=== PATIENT | male | born 1950 | race Caucasian/White ===

== ENCOUNTER 2022-05-03 13:08 | Outpatient (REF) | payer OTHER, SELFPAY | END 2022-05-03 13:09 | disposition home or self-care (01) | LOC: HO.LAB 13:08 | PROVIDERS: PCP Nurse Practitioner Family; Visit Provider Nurse Practitioner Family | DX: Z13.89 Encounter for screening for other disorder (principal) ==

== ENCOUNTER → 2022-06-01 11:30 | Outpatient (BNVA) | payer OTHER, MEDICAID, SELFPAY | PROVIDERS: PCP Nurse Practitioner Family; Visit Provider Surgery Vascular Surgery | DX: I65.29 Occlusion and stenosis of unspecified carotid artery (principal) | CPT/HCPCS: 99202 ==

== ENCOUNTER 2022-06-16 15:29 | Outpatient (REF) | payer OTHER, MEDICAID, SELFPAY ==
--- NOTE | ~2022-06-16 | US_ITS ---
EXAMINATION: US EXTRACRANIAL CAROTID DUPLEX, BILATERAL CLINICAL INFORMATION: Carotid stenosis. COMPARISON: None available. TECHNIQUE: Real-time ultrasound and Doppler techniques (integrating B-mode 2-D vascular images, Doppler spectral analysis and color-flow Doppler imaging) were utilized to interrogate the extracranial carotid arteries, the vertebral arteries and proximal subclavian arteries bilaterally. The degree of stenosis is determined by criteria similar to NASCET. FINDINGS: RIGHT SIDE: 1. There is mild atherosclerotic plaque seen in the bifurcation/proximal ICA region. 2. The common carotid artery PSV proximally is 83 cm/s and distally 65 cm/s. 3. The proximal internal carotid artery velocities are 68 cm/s systolic and 17 cm/s diastolic. 4. The proximal external carotid artery PSV is 94 cm/s. 5. The vertebral artery shows antegrade flow. 6. The subclavian artery waveforms are normal. LEFT SIDE: 1. There is moderate atherosclerotic plaque seen in the bifurcation/proximal ICA region. 2. The common carotid artery PSV proximally is 77 cm/s and distally 72 cm/s. 3. The proximal internal carotid artery velocities are 173 cm/s systolic and 40 cm/s diastolic. 4. The proximal external carotid artery PSV is 103 cm/s. 5. The vertebral artery shows antegrade flow. 6. The subclavian artery waveforms are normal. US/US carotid duplex BI IMPRESSION: 1. RIGHT: Minimal, non-hemodynamically significant stenosis of the proximal right internal carotid artery corresponding to a 0-49% stenosis by velocity criteria. 2. LEFT: Moderate, hemodynamically significant stenosis of the proximal left internal carotid artery corresponding to a 50-79% stenosis by velocity criteria.
== END 2022-06-16 15:30 | disposition home or self-care (01) ==
LOC: HO.US 15:29
PROVIDERS: PCP Nurse Practitioner Family; Visit Provider Surgery Vascular Surgery
DX: I65.22 Occlusion and stenosis of left carotid artery (principal)
CPT/HCPCS: 93880

== ENCOUNTER → 2022-06-29 14:32 | Outpatient (BNVA) | payer OTHER, MEDICAID, SELFPAY | PROVIDERS: PCP Nurse Practitioner Family; Visit Provider Surgery Vascular Surgery | DX: I65.22 Occlusion and stenosis of left carotid artery (principal) | CPT/HCPCS: 99212 ==

== ENCOUNTER → 2022-08-01 10:15 | Outpatient (BNVA) | payer OTHER, MEDICAID, SELFPAY | PROVIDERS: PCP Nurse Practitioner Family; Visit Provider Psychiatry & Neurology Neurology | DX: I69.328 Other speech and language deficits following cerebral infarction (principal); I65.29 Occlusion and stenosis of unspecified carotid artery; Z79.82 Long term (current) use of aspirin | CPT/HCPCS: 99202 ==

== ENCOUNTER 2022-08-03 11:05 | Outpatient (REF) | payer OTHER, MEDICAID, SELFPAY ==
--- NOTE | ~2022-08-03 | US_ITS ---
EXAMINATION: US ABDOMEN LIMITED CLINICAL INFORMATION: Other specified abnormal findings of blood chemistry. COMPARISON: None available. TECHNIQUE: Real-time imaging of the right upper quadrant abdominal viscera. FINDINGS: PANCREAS: Normal. The visualized pancreatic head and body are normal in appearance. The remainder of the pancreas is obscured from visualization by the overlying bowel gas. LIVER: Normal. The liver is normal in size. The liver contour is normal. Parenchymal echogenicity is normal. No focal hepatic lesion. There is no intrahepatic biliary duct dilatation seen. GALLBLADDER: Normal. The gallbladder is physiologically distended without evidence of stones, sludge, polyps, wall thickening or pericholecystic fluid. COMMON BILE DUCT: Normal in caliber measuring 0.3 cm in diameter. RIGHT KIDNEY: Normal. No hydronephrosis. No renal calculi or focal parenchymal lesions. The kidney measures 12.1 cm in maximum dimension. FREE FLUID: None. US/US abdomen limited IMPRESSION: Unremarkable abdominal ultrasound examination, with imaging the pancreatic tail technically limited.
[2022-08-03 11:21] LABS: MANUAL DIFF FLAG NO
[2022-08-03 11:58] LABS: Basophils Percent Auto 0.4 % (0-2); Eosinophils Absolute Auto 0.1 X10*3/uL (0.0-0.4); Eosinophils Percent Auto 1.7 % (0-4); Hemoglobin 14.9 g/dl (14.0-18.0); Imm Gran Abs Auto 0.01 X10*3/uL (0.00-0.03); Imm Gran Pct Auto 0.2 % (0.0-0.4); Lymphocytes Absolute Auto 1.4 X10*3/uL (1.2-4.9); Lymphocytes Percent Auto 26.4 % (20-40); Mean Corpuscular HGB Conc 34.7 g/dl (31.0-36.0); Mean Corpuscular Volume 89.4 fL (80.0-98.0); Mean Platelet Volume 9.1 fL (9.4-12.4); Monocytes Absolute Auto 0.4 X10*3/uL (0.1-1.2); Monocytes Percent Auto 7.9 % (2-11); Neutrophils Absolute Auto 3.4 x10*3/uL (2.0-8.3); Neutrophils Percent Auto 63.4 % (45-73); Platelet Count 157 X10*3/uL (160-400); Red Blood Count 4.81 X10*6/uL (4.60-5.80); Red Cell Distribution Width 13.2 % (11.0-16.0); White Blood Count 5.3 X10*3/uL (4.8-10.8)
[2022-08-03 12:50] LABS: Alanine Aminotransferase 33 U/L (0-40); Albumin Level 4.8 g/dL (3.5-5.0); Alkaline Phosphatase 116 U/L (39-117); Anion Gap 11 (12-20); Aspartate Amino Transferase 35 U/L (5-37); Bilirubin Direct 0.4 mg/dL (0.0-0.5); Bilirubin Total 1.7 mg/dL (0.0-1.0); Blood Urea Nitrogen 13 mg/dL (9-16); Calcium 9.5 mg/dL (8.4-10.2); Carbon Dioxide 27 mmol/L (22-29); Chloride 105 mmol/L (96-108); Cholesterol 199 mg/dL; Estimated Glomerular Filt Rate > 60; Glucose Random 121 mg/dL (60-115); HDL Cholesterol 34 mg/dL; LDL Cholesterol Calculated 153 mg/dl; Potassium 4.7 mmol/L (3.3-5.1); Sodium 138 mmol/L (135-145); TSH reflex Free T4 0.49 uIU/mL (0.32-4.0); Total Protein 7.5 g/dL (6.5-8.0); Triglycerides 63 mg/dL
[2022-08-03 13:06] LABS: Estimated Average Glucose 91 mg/dL; Hemoglobin A1c % 4.8 %
[2022-08-04 05:40] LABS: HBc Num1 0.07 S/CO (0.00-0.79); HBsAGNum1 0.71 S/CO (0.00-0.99); Hepatitis A Antibody IgM 0.24 Index (0-0.79); Hepatitis B Core Antibody Nonreactive (Nonreactive); Hepatitis B Surface Antigen Negative (Negative); ~HepC Num1 0.08 S/CO (0.00-0.79); ~Hepatitis A Antibody IgM Nonreactive (Nonreactive); ~Hepatitis B Surface Antibody NONREACTIVE (Nonreactive); ~Hepatitis C Antibody Nonreactive (Nonreactive)
== END 2022-08-03 11:06 | disposition home or self-care (01) ==
LOC: HO.US 11:05
PROVIDERS: PCP Nurse Practitioner Family; Visit Provider Nurse Practitioner Family
DX: R79.89 Other specified abnormal findings of blood chemistry (principal); Z13.29 Encounter for screening for other suspected endocrine disorder; Z13.220 Encounter for screening for lipoid disorders; Z13.1 Encounter for screening for diabetes mellitus; Z13.0 Encounter for screening for diseases of the blood and blood-forming organs and certain disorders involving the immune mechanism
CPT/HCPCS: 36415; 76705; 80053; 80061; 82248; 83036; 84443; 85025; 86704; 86706; 86709; 86803; 87340

== ENCOUNTER 2022-10-06 13:23 | Outpatient (AMB) | payer OTHER, MEDICAID, SELFPAY ==
--- NOTE | 2022-10-06 13:26 | A.OFFPC_ITS ---
Vital Signs 10/06/22 13:30 Height 6 ft 3 in Weight 210 lb BMI 26.2 BP 130/72 Blood Pressure Location Lt brachial Position Sitting Pulse 64 Pulse Source Pulse Oximeter Pulse Oximetry (%) 98 Oxygen Delivery Method Room Air Intake Visit Reasons: Follow up Allergies No Known Allergies [No Known Allergies*] Allergy (Verified 10/06/22 13:30) Tobacco use date assessed: 05/25/22 Fall risk assessment: No Falls in past year Last assessed Fall Risk: 10/06/22 Dental Screening Dental Screen Date: 10/06/22 Did you have a dental visit in the last 12 months?: No Did you have a dental problem in the last 6 months where you did not have access to dental care?: No Was dental information given to patient?: No HPI HPI Comments History of Present Illness Details 72-year-old male past medical history significant for anxiety, depression, hyperlipidemia and left MCA stroke. Patient last seen in May presents today for follow-up. Review of the notes patient was seen by a neurologist and she recommended patient restart back on aspirin, atorvastatin and Plavix he discontinued for an unknown reason. Patient was cleared for his tooth extraction procedure by Neurologist and advised to initiate Plavix following that procedure, and not to discontinue aspirin therapy 3rd tooth extraction due to high risk for embolic events. Patient presents today for prescription for motorized scooter. Patient made aware that he will need a formal scooter evaluation to evaluate for the need for scooter. It is unclear why patient is requesting a motorized scooter as he has no residual deficits or mobility difficulties following his stroke. Patient states he walks alot.Only residual deficits his stuttering with his speech. Referral placed to [facility] for formal scooter evaluation. Patient reports not taking plavix or his atorvastatin because they affected him in a negative way and make his head spin. Stressed the importance of taking his recommended Plavix and cholesterol medication to prevent future strokes. LDL is 153, LDL goal less than 70. Patient reports he will speak with his neurologist at his follow-up appointment regarding his antiplatelet therapy. Patient agreeable to starting alternative statin medication, rosuvastatin 40 mg sent to patient's pharmacy. Fasting labs ordered. [facility] Medical History (Updated 08/07/22 @ 15:42 by NASEEM Delgado) Alcoholism Anxiety Aphasia Carotid artery stenosis Chronic ischemic left MCA stroke Major depressive disorder Scoliosis Stroke Surgical History Hx of hernia repair Family History (Updated 10/06/22 @ 13:31 by Janneth Shaffer LEASE PURCHASE TRUCK DRIVER) Father Diabetes Kidney failure Mother Diabetes Rheumatic heart disease Social History Housing: Apartment Alcohol intake: never Patient Tobacco Use Status: Never used Tobacco e-Cigarette/Vaping Use: Never Used Second Hand Smoke Exposure: No service: No Cognitive needs: No Hearing needs: No Vision needs: No Questionnaire PHQ-9 Over the last 2 weeks, how often have you been bothered by any of the following problems? 1. Little interest or pleasure in doing things: not at all 2. Feeling down, depressed, or hopeless: not at all 3. Trouble falling or staying asleep, or sleeping too much: not at all 4. Feeling tired or having little energy: not at all 5. Poor appetite or overeating: not at all 6. Feeling bad about yourself - or that you are a failure or have let yourself or your family down: not at all 7. Trouble concentrating on things, such as reading the newspaper or watching television: not at all 8. Moving or speaking so slowly that other people could have noticed. Or the opposite - being so fidgety or restless that you have been moving around a lot more than usual: not at all 9. Thoughts that you would be better off or of hurting yourself in some way: not at all Total score: 0 Depression Screening Interpretation: Negative 39735 - PHQ-9 Billing: Yes Source: Developed by Drs. Gabe Gordon, Negro Solitario and colleagues, with an educational hanny from [employer]. Thrive Questionnaire Date Thrive assessed: 04/07/22 AUDIT C Alcohol Use Questionnaire (AUDIT-C) 1. How often do you have a drink containing alcohol?: Never Total Score: 0 LAZARO-7 AMB Questionnaire LAZARO-7 Date LAZARO - 7 assessed: 05/08/22 Source: Developed by Drs. Gabe Gordon, Chelly Barker, Negro Gu and colleagues, with an educational hanny from [employer]. Review of Systems Const Denies chills, Denies fatigue, Denies fever(s) and Denies poor appetite Eyes Denies no additional complaints ENT Reports Normal hearing present Card Denies chest pain, Denies syncope, Denies rapid heart rate and Denies dyspnea Resp Denies cough and Denies dyspnea GI Denies change in stool character, Denies constipation, Denies diarrhea, Denies nausea and Denies vomiting Denies dysuria, Denies urinary frequency and Denies urinary urgency Neuro Reports Normal hearing present, Denies confusion and Denies syncope Psych Denies confusion Endo Denies fatigue Physical exam (Primary Care) Vital Signs: Last Vital Signs Pulse 64 10/06/22 13:30 BP 130/72 10/06/22 13:30 Pulse Ox 98 10/06/22 13:30 Oxygen Delivery Method Room Air 10/06/22 13:30 BMI result Body Mass Index 26.2 Tobacco/Smoking Status: Tobacco use Status Tobacco use date assessed 05/25/22 10/06/22 13:27 Patient Tobacco Use Status Never used Tobacco 10/06/22 13:27 e-Cigarette/Vaping Use Never Used 10/06/22 13:34 PHQ-9: PHQ-9 Score PHQ-9: Total score 0 10/06/22 13:46 Depression Screening Interpretation: Negative Thrive Assessment: Date of Thrive Assessment Date Thrive assessed 04/07/22 10/06/22 13:27 Const General: cooperative and no acute distress; No confusion Orientation/consciousness: patient oriented x3 and No confusion HENMT Head: Yes normocephalic and Yes atraumatic Eyes Conjunctivae: conjunctivae normal Chest Chest palpation & inspection: normal inspection of the chest Resp Effort & Inspection: normal respiratory effort Auscultation: clear to auscultation bilaterally, no crackles, no rhonchi and no wheezes Cardio Rate: regular rate Rhythm: regular rhythm Heart sounds: S1 normal heart sound present and S2 normal heart sound present GI Inspection: Yes normal to inspection Neuro General: patient oriented x3 and No confusion Cranial nerves: Yes Normal hearing present Extrem General: No edema Assessment and Plan Assessment & Plan (1) Major depressive disorder: Code(s): F32.9 - Major depressive disorder, single episode, unspecified Plan: Patient stable on Venlafaxine 37.5mg BID. (2) Anxiety: Code(s): F41.9 - Anxiety disorder, unspecified Plan: Patient stable on Venlafaxine 37.5mg BID. (3) Hyperlipidemia: Code(s): E78.5 - Hyperlipidemia, unspecified Plan: Given patient discontinued atorvastatin on his own as it makes his has been will try alternative statin. Rosuvastatin 40 mg daily sent to patient's pharmacy. LDL goal less than 70. Avoid fried foods, chicken skin, eggs, butter,margarine, pastries and? red meat. (4) Stroke: Code(s): I63.9 - Cerebral infarction, unspecified Plan: Patient advised to continue on aspirin and re-initiate his Plavix 75 mg daily as directed by Neurology. Continue to follow with neurologist. Plan Follow-up in 1 month Orders: Orders PT Evaluation and Treatment 10/06/22 I69.30 - Unspecified sequelae of cerebral infarction Comprehensive Johnson. Panel Fast 10/06/22 I65.29 - Occlusion and stenosis of unspecified carotid artery Lipid Panel 10/06/22 E78.5 - Hyperlipidemia, unspecified TSH reflex Free T4 10/06/22 Z13.29 - Encounter for screening for other suspected endocrine disorder Complete Blood Count no Diff 10/06/22 Z13.0 - Encounter for screening for diseases of the blood and blood-forming organs and certain disorders involving the immune mechanism Medications: New rosuvastatin 40 mg PO DAILY 90 tabs 1RF E78.5 - Hyperlipidemia, unspecified Discontinued atorvastatin Discontinued Reason: Doctor's Order 80 mg PO DAILY 30 tabs 3RF E78.5 - Hyperlipidemia, unspecified Coding Level of Care Code Est Pt Level 4 (57158) Diagnoses Major depressive disorder F32.9 Anxiety F41.9 Hyperlipidemia E78.5 Stroke I63.9
[2022-10-06 13:30] VITALS: BP 130/72; PULSE 64; O2SAT 98; BMI 26.2
== END 2022-10-06 13:58 | disposition home or self-care (01) ==
PROVIDERS: PCP Nurse Practitioner Family; Visit Provider Nurse Practitioner Family
DX: F33.9 Major depressive disorder, recurrent, unspecified (principal); F41.9 Anxiety disorder, unspecified; E78.5 Hyperlipidemia, unspecified; I69.30 Unspecified sequelae of cerebral infarction
CPT/HCPCS: 99214

== ENCOUNTER 2022-11-02 12:50 | Outpatient (REF) | payer OTHER, MEDICAID, SELFPAY ==
[2022-11-02 13:18] LABS: Hematocrit 41.4 % (42.0-52.0); Mean Corpuscular HGB Conc 33.8 g/dl (31.0-36.0); Mean Corpuscular Volume 91.6 fL (80.0-98.0); Mean Platelet Volume 9.2 fL (9.4-12.4); Platelet Count 158 X10*3/uL (160-400); Red Blood Count 4.52 X10*6/uL (4.60-5.80); Red Cell Distribution Width 13.1 % (11.0-16.0)
[2022-11-02 14:32] LABS: Alanine Aminotransferase 29 U/L (0-40); Albumin Level 4.5 g/dL (3.5-5.0); Alkaline Phosphatase 106 U/L (39-117); Anion Gap 12 (12-20); Aspartate Amino Transferase 32 U/L (5-37); Bilirubin Total 0.7 mg/dL (0.0-1.0); Blood Urea Nitrogen 11 mg/dL (9-16); Calcium 9.7 mg/dL (8.4-10.2); Carbon Dioxide 27 mmol/L (22-29); Chloride 106 mmol/L (96-108); Cholesterol 187 mg/dL (<200); Estimated Glomerular Filt Rate > 60; Glucose Fasting 77 mg/dL (60-99); Glucose Random 76 mg/dL (60-115); HDL Cholesterol 33 mg/dL (>40); LDL Cholesterol Calculated 137 mg/dL (<100); Potassium 4.5 mmol/L (3.3-5.1); Sodium 140 mmol/L (135-145); Total Protein 7.1 g/dL (6.5-8.0); Triglycerides 89 mg/dL (<150)
== END 2022-11-02 12:51 | disposition home or self-care (01) ==
LOC: HO.LAB 12:50
PROVIDERS: PCP Nurse Practitioner Family; Visit Provider Nurse Practitioner Family
DX: I65.29 Occlusion and stenosis of unspecified carotid artery (principal); E78.5 Hyperlipidemia, unspecified; R79.89 Other specified abnormal findings of blood chemistry; Z13.29 Encounter for screening for other suspected endocrine disorder; Z13.0 Encounter for screening for diseases of the blood and blood-forming organs and certain disorders involving the immune mechanism
CPT/HCPCS: 36415; 80053; 80061; 84443; 85027

== ENCOUNTER 2022-11-10 13:56 | Outpatient (AMB) | payer OTHER, MEDICAID, SELFPAY ==
--- NOTE | 2022-11-10 14:00 | A.OFFPC_ITS ---
Vital Signs 11/10/22 14:02 11/10/22 14:07 Height 6 ft 3 in Weight 206 lb 4 oz BMI 25.8 BP 90/60 112/64 Blood Pressure Location Lt brachial Lt brachial Position Sitting Sitting Pulse 61 Pulse Source Pulse Oximeter Pulse Oximetry (%) 98 Oxygen Delivery Method Room Air Intake Visit Reasons: 6M Follow up Intake Note: Patient is here to follow up on Hyperlipidemia. Scientific Process Operator Required: No Hospital Receiving Clerk: Not Required per policy Accompanied by: Self / Same As Patient Allergies No Known Allergies [No Known Allergies*] Allergy (Verified 11/10/22 14:10) Tobacco use date assessed: 11/10/22 Fall risk assessment: No Falls in past year Last assessed Fall Risk: 11/10/22 Dental Screening Dental Screen Date: 11/10/22 Did you have a dental visit in the last 12 months?: Yes Did you have a dental problem in the last 6 months where you did not have access to dental care?: No Was dental information given to patient?: Patient has dentist HPI HPI Comments History of Present Illness Details 72-year-old male past medical history significant for anxiety, depression, hyperlipidemia and left MCA stroke. Patient last seen in May presents today for follow-up. Review of the notes patient was seen by a neurologist and she recommended patient restart back on aspirin, atorvastatin and Plavix he discontinued for an unknown reason. Last Office visit: Patient reports not taking plavix or his atorvastatin because they affected him in a negative way and make his head spin. Stressed the importance of taking his recommended Plavix and cholesterol medication to prevent future strokes. LDL is 153, LDL goal less than 70. Patient reports he will speak with his neurologist at his follow-up appointment regarding his antiplatelet therapy. Patient agreeable to starting alternative statin medication, rosuvastatin 40 mg sent to patient's pharmacy. Fasting labs ordered. Patient presents today stating that his LDL was 138 in that he discontinue taking his statin medication on his own. Because his cholesterol is good. Discussed with patient at length due to his recent stroke, hyperlipidemia and CAD that has LDL goal would be 70 or below. Discussed with starting patient on alternative medication for cholesterol, patient continues to decline taking any medication for cholesterol at this time patient reports that he is taking natural teas/supplements and exercising daily and following a low-cholesterol diet to lower his cholesterol. Patient also reports that he has not been taking his aspirin either and has stop taking Plavix. Patient not agreeable to reinitiating Plavix medication. Discussed with patient concern for his health and having a recurrent stroke. Patient states he will reinitiate aspirin therapy. Patient states has an appointment to follow-up with neurologist next month. [facility] Medical History (Updated 08/07/22 @ 15:42 by NASEEM Delgado) Chronic ischemic left MCA stroke Carotid artery stenosis Aphasia Scoliosis Stroke Alcoholism Major depressive disorder Anxiety Surgical History Hx of hernia repair Family History Father Diabetes Kidney failure Mother Diabetes Rheumatic heart disease Social History Housing: Apartment Alcohol intake: never Patient Tobacco Use Status: Never used Tobacco e-Cigarette/Vaping Use: Never Used Second Hand Smoke Exposure: No service: No Cognitive needs: No Hearing needs: No Vision needs: Yes (glasses) Questionnaire Thrive Questionnaire Date Thrive assessed: 04/07/22 LAZARO-7 AMB Questionnaire LAZARO-7 Date LAZARO - 7 assessed: 05/08/22 Source: Developed by Drs. Gabe Gordon, Chelly Barker, Negro Gu and colleagues, with an educational hanny from [employer]. Review of Systems Const Denies chills, Denies fatigue, Denies fever(s) and Denies poor appetite Eyes Denies no additional complaints ENT Reports Normal hearing present Card Denies chest pain, Denies syncope, Denies rapid heart rate and Denies dyspnea Resp Denies cough and Denies dyspnea GI Denies change in stool character, Denies constipation, Denies diarrhea, Denies nausea and Denies vomiting Denies dysuria, Denies urinary frequency and Denies urinary urgency Neuro Reports Normal hearing present, Denies confusion and Denies syncope Psych Denies confusion Endo Denies fatigue Physical exam (Primary Care) Vital Signs: Last Vital Signs Pulse 61 11/10/22 14:02 BP 112/64 11/10/22 14:07 Pulse Ox 98 11/10/22 14:02 Oxygen Delivery Method Room Air 11/10/22 14:02 BMI result Body Mass Index 25.8 Tobacco/Smoking Status: Tobacco use Status Tobacco use date assessed 11/10/22 11/10/22 14:08 Patient Tobacco Use Status Never used Tobacco 11/10/22 14:08 e-Cigarette/Vaping Use Never Used 11/10/22 14:08 Thrive Assessment: Date of Thrive Assessment Date Thrive assessed 04/07/22 11/10/22 14:08 Const General: No confusion Orientation/consciousness: No confusion HENMT Head: Yes normocephalic and Yes atraumatic Eyes Conjunctivae: conjunctivae normal Chest Chest palpation & inspection: normal inspection of the chest Resp Effort & Inspection: normal respiratory effort Auscultation: clear to auscultation bilaterally, no crackles, no rhonchi and no wheezes Cardio Rate: regular rate Rhythm: regular rhythm Heart sounds: S1 normal heart sound present and S2 normal heart sound present GI Inspection: Yes normal to inspection Neuro General: No confusion Cranial nerves: Yes Normal hearing present Extrem General: No edema Assessment and Plan Assessment & Plan (1) Stroke: Code(s): I63.9 - Cerebral infarction, unspecified Plan: Patient advised to restart aspirin 81 mg daily, patient agreeable to this. Patient continues to refuse taking Plavix medication. (2) Hyperlipidemia: Code(s): E78.5 - Hyperlipidemia, unspecified Plan: Patient also continues to refuse statin medication had prescribed alternative statin at last office visit however patient stated that his LDL decreased to 138 and decided to discontinue his statin on his own. Discussed with patient at length that due to his history of stroke, CAD LDL goal is less than 70. Patient continues to refuse cholesterol medication. (3) Anxiety: Code(s): F41.9 - Anxiety disorder, unspecified Plan: Patient states he follows with psychiatry and was [employer]. (4) Major depressive disorder: Code(s): F32.9 - Major depressive disorder, single episode, unspecified Plan Follow-up in 3 months. Orders: Orders Comprehensive [place]. Panel Fast 3 Months E78.5 - Hyperlipidemia, unspecified, F32.9 - Major depressive disorder, single episode, unspecified, F41.9 - Anxiety disorder, unspecified, I63.9 - Cerebral infarction, unspecified Lipid Panel 3 Months Z13.220 - Encounter for screening for lipoid disorders Coding Level of Care Code Est Pt Level 3 (78411) Diagnoses Stroke I63.9 Hyperlipidemia E78.5 Anxiety F41.9 Major depressive disorder F32.9
[2022-11-10 14:02] VITALS: BP 90/60; PULSE 61; O2SAT 98; BMI 25.8
[2022-11-10 14:07] VITALS: BP 112/64
== END 2022-11-10 14:24 | disposition home or self-care (01) ==
PROVIDERS: PCP Nurse Practitioner Family; Visit Provider Nurse Practitioner Family
DX: Z86.73 Personal history of transient ischemic attack (TIA), and cerebral infarction without residual deficits (principal); F41.9 Anxiety disorder, unspecified; E78.5 Hyperlipidemia, unspecified; F33.9 Major depressive disorder, recurrent, unspecified
CPT/HCPCS: 99213

== ENCOUNTER → 2023-08-13 11:36 | Outpatient (RCR) | payer OTHER, MEDICAID, SELFPAY ==
--- NOTE | 2022-05-19 12:01 | MHC.SP.ADU ---
Addendum entered and electronically signed by Keily Winchester MA, CCC-GINNING OPERATOR 05/19/22 12:57: As a clinical caddie supervisor, I have reviewed and agree with the content of this report. Original Note: Referring provider: NASEEM Sheikh Reason for Referral: Cerebral infarction Type of Treatment: 65701 Evaluation Speech Sound Production WITH Language Date of Plan of Treatment: 05/03/22 Onset of Symptoms/Illness: 03/20/22 Date Treatment Started: 05/03/22 Medical Diagnosis: s/p CVA Primary Speech Language Diagnosis: R47.01 Aphasia History Johnny is a left handed 71 year old Spanish speaking male with a recent history of CVA that occurred in March 2022. Prior to this recent CVA Johnny reports having an incident of ?collapsing? in May 2021; this is reportedly believed to have been a prior stroke or TIA. Johnny was referred for a speech and language evaluation by his primary care physician, NASEEM Sheikh, of [facility] [place]. Reported areas of difficulty include: expressing thoughts, being understood by others, problem solving, focus/attention, reading/writing, word finding, maintaining conversation topic, speech fluency, following directions, and voice. Johnny reports his greatest concern as his speech and ?stuttering.? He reports improvement in clarity since the stroke ?but still needs help? stating ?when I try to annunciate my words, I start to have problems? and ?less familiar words are more difficult.? Johnny also reports that he noticed it takes him longer to play solitaire than before the CVA, reporting difficulties with memory and lethargy during this activity. Johnny reports seeing a Speech-Language Pathologist during hospitalization at [facility] and was recommended treatment three times a week for 6 weeks. Medical History: ADHD, Anxiety/Depression, Arthritis, Concussion, Emotional/psychological issues, Head injury, Panic Attacks, Sinusitis, Stroke, Voice issues or changes Medication List: Venlafaxine, Clopidogrel, Aspirin, Atorvastatin, Men Vitamins Recent Hospitalizations: Yes: March 2022 @ [facility] for CVA Respiratory Needs: Room Air Patient Orientation: Alert & Oriented x 4 Social History: Employment Status: Retired Highest level of education obtained: Completed High School/GED Current Living Situation: Pt lives independently Assistive Devices in use: Glasses/Contacts Past Speech Language Therapy: Johnny reports seeing a Speech-Language Pathologist during hospitalization at [facility] and was recommended treatment three times a week for 6 weeks. Swallowing History: Dysphagia Specific: Comments: Johnny reports that he did not see a GINNING OPERATOR for dysphagia treatment during hospitalization following CVA. Pre-eval Risk for Aspiration: Neurological Condition Assessment Speech Production: Aphasic: Fluent Informal Voice Assessment: Voice Loudness: Normal Voice Phonatory-based Quality: Normal Voice Pitch: Normal Clinical Impression: Did Not Test Formally Tests of Speech & Lang Adults: BDAE BNT Results: Johnny was evaluated through formal and informal assessment tools and clinical observation, including the [place] Diagnostic Aphasia Evaluation (BDAE), [place] Naming Test (BNT), clock drawing task, and clinical observation. Johnny presented as fully oriented with the ability to produce automatic sequences, comprehend auditory language, and follow directions. Johnny presented with difficulty with word finding and disfluency throughout administered tasks and conversation as well as with repetition of single words with increasing length complexity. Both semantic and phonemic paraphasias were observed with moderate frequency throughout conversation, most often self-corrected within a short time. Paraphasias were mostly phonemic, consisting of both words and nonwords. For example, Johnny produced ?clods? and ?clocks? for ?clots,? fuel? and ?full? for ?filled,? ?guesting? for ?guessing,? and ?impropter? for ?improper.? Semantic paraphasias included ?walking? for ?talking? and ?turning? for ?falling.? Disfluencies included interjections, prolongations, word repetitions, and phrase repetitions. For example, during the ?Cookie Theft? task in which Johnny was presented with a picture scene and asked to describe it, he produced the following: ?I haven?t really phrased, uh ph- used a phrazh? uh [id number]-phrase? uh yep uh? alright the-the young boy uh is reaching up to the shelf after he is uh climbed on a stool?? Disfluencies may be related to difficulties with word finding. When asked to repeat ?Sikh Hindu,? Johnny presented with difficulty with producing the correct sounds in the appropriate order in the word ?Hindu.? Johnny benefitted from cues including direct model and over-articulation. When provided with minimal cueing, Johnny produced the word accurately. No difficulty with auditory comprehension or receptive language was observed. Throughout subtests targeting auditory comprehension, Johnny followed 1-2 step commands of increasing complexity with ease, including ?Tap each shoulder twice with two fingers, keeping your eyes shut.? When read a word aloud, Johnny identified the correct picture to match in all 16 test items. Johnny was administered the [place] Naming Test in which an individual is shown 60 line drawing images and asked to name them. Johnny named 59 out of 60 items correctly, requiring minimal intermittent cues with more complex and less familiar words including ?yoke,? ?trellis,? and ?protractor.? Johnny benefitted from both phonemic cues and multiple choice options. Johnny presented with phonemic paraphasias, semantic paraphasias, circumlocution, disfluencies, and latency during this test. Lastly, Johnny was administered a version of a clock drawing task in which he was given a drawing of a ute mountain with the instructions to draw a clock putting in all the numbers and setting the hands to ?ten minutes after eleven.? Johnny was observed to quickly and efficiently make an accurate clock. All numbers were present with accurate placement and spacing and both a short and long hand were present pointing to the appropriate time. Johnny even labeled ?short hand? next to the short hand to ensure clarity of his drawing. Tests of Cognition: Clinical Impression: Did Not Test Impressions and Recommendations Summary: Based on today?s evaluation Johnny presents with mild anomic aphasia characterized by word finding errors with disfluent speech. It is recommended that Johnny receive speech therapy in the outpatient setting once a week for 6 weeks to participate in further testing in the areas of cognition and communication and improve expressive language skills. Johnny would be a candidate for remote treatment via teletherapy. Impact on Daily Function/Activity Limitations: Minimal-Moderate Daily Activities: Minimal-Moderate Interpersonal Interactions: Minimal-Moderate Community: Minimal-Moderate Prognosis for Improvement: Good Recommendation for Speech Therapy: Further Testing Needed Outpatient Speech Therapy Frequency/Duration: 1x/week x 6 weeks Rn Cardiac Goals: LTG 1 Johnny will complete additional standardized testing in the areas of cognition and communication to better inform goals. LTG 2 Johnny will improve expressive language skills. Short Term Goals: STG 1.1 Johnny will complete the Cognitive Linguistic Quick Test (CLQT) with 100% completion. STG 1.2 Johnny will complete the Communication Activities of Daily Living (CADL) with 100% completion. STG 2.1 Johnny will eliminate paraphasias while naming functional items in confrontational naming tasks with minimal support with 80% accuracy. STG 2.2 Johnny will eliminate disfluencies in conversational tasks to less than 10% when provided with minimal support. Patient Education: Completed: Yes Patient/Caregiver Education: Described Results of Evaluation Patient expressed understanding of evaluation Patient agrees with goals and treatment plan It was a pleasure to work with Johnny. If you have any questions about the contents of this report, do not hesitate to contact me at [phone] or [email or web address] Ultrasound Supervisor Clinican/Clinical Fellow: Yes Supervisory Statement: Yes Speech Language Pathologist: Keily Winchester M.A., CCC-GINNING OPERATOR
== END | disposition home or self-care (01) ==
LOC: HO.SH 05-03 10:46
PROVIDERS: Visit Provider Nurse Practitioner Family
DX: I63.9 Cerebral infarction, unspecified (principal); R47.01 Aphasia
CPT/HCPCS: 92523